=== PATIENT | male | born 1945 | race African-American/Black ===

== ENCOUNTER → 2017-03-19 | Outpatient (CLI) | payer OTHER ==
[~2017-03-19] MED LIST: ACETAMINOPHEN-1 EAC1 PO; AMLODIPINE BESY10 MG PO; ANTACID650 MG; AUGMENTIN 500-1 EACH PO; CALMOSEPTINE O3.5 GM TOP; CLONIDINE HCL0.3 M3 PO; CLOPIDOGREL75 MG PO; COLACE100 MG; COREG25 MG PO; FLOMAX0.4 MG PO; GLUCOTROL5 MG PO; HYDRALAZINE HC100 MG; IRON325 PO; JUVEN PACKET1 EACH PO; LISINOPRIL2.5 MG PO; LYRICA 50 MG50 MG; METFORMIN HCL500 MG PO; ONDANSETRON HCL4 M2 PO; SENEXON8.6 MG; TYLENOL325 MG PO; VENTOLIN HFA 1818 GM INH; VITAMINC500 PO
[2017-03-19 11:00] VITALS: BP 122/64
== END | disposition home or self-care (01) ==
LOC: OPONC 06:29
DX: Z45.2 Encounter for adjustment and management of vascular access device (principal)
CPT/HCPCS: 27001